=== PATIENT | female | born 1940 | race Two or more races ===

== ENCOUNTER 2024-05-25 07:57 | Inpatient (IN) | payer MEDICARE, OTHER ==
[~2024-05-25] VITALS: Ht 152.4 cm; Wt 41.7 kg
[2024-05-25 07:00] VITALS: BP 138/63; TEMP 97.5; O2SAT 96
[2024-05-25] MEDS ORDERED: ONDANSETRON HCL/PF 4 MG/2 ML VIAL ONE (08:15)
[2024-05-25] MEDS ORDERED: FAMOTIDINE/PF INJ 20 MG/2 ML VIAL IV ONE (08:15)
[2024-05-25] MEDS: ONDANSETRON HCL/PF 4 MG/2 ML VIAL IVP ONE (08:22)
[2024-05-25] MEDS: FAMOTIDINE/PF INJ 20 MG/2 ML VIAL IV ONE (08:24)
[2024-05-25 08:33] LABS: BASOPHILS # (AUTO) 0.1 K/uL (0.0-0.2); BASOPHILS % (AUTO) 0.6 % (0.0-2.0); EOSINOPHILS # (AUTO) 0.2 K/uL (0.0-0.7); EOSINOPHILS % (AUTO) 1.3 % (0.0-6.0); HEMATOCRIT 41 % (33-45); HEMOGLOBIN 13.3 g/dL (11.5-14.8); LYMPHOCYTES % (AUTO) 26.6 % (20.0-44.0); MEAN CORPUSCULAR HEMOGLOBIN 28 PG (26.0-33.0); MEAN CORPUSCULAR HGB CONC 32 g/dl (31.0-36.0); MEAN CORPUSCULAR VOLUME 87 fL (82-100); MONOCYTES # (AUTO) 0.6 K/uL (0.1-1.30); MONOCYTES % (AUTO) 4.3 % (2.0-12.0); NEUTROPHILS # (AUTO) 10.1 K/uL (1.8-8.9); NEUTROPHILS % (AUTO) 67.2 % (43.0-81.0); PLATELET COUNT (AUTO) 407 K/uL (150-450); RED BLOOD CELL COUNT(AUTO) 4.73 MIL/uL (4.0-5.2); WHITE BLOOD COUNT (AUTO) 15.1 K/uL (4.3-11.0)
[2024-05-25] MEDS: IV NS 0.9% 500 ML BAG IV ONE (08:35)
[2024-05-25] MEDS: PANTOPRAZOLE 80 MG in IV NS 0.9% 100 ML IV ONE (08:47)
[2024-05-25 08:55] LABS: ALANINE AMINOTRANSFERASE 12 U/L (12-78); ALBUMIN 2.8 g/dL (3.4-5.0); ALKALINE PHOSPHATASE 87 U/L (46-116); ASPARTATE AMINOTRANSFERASE 10 U/L (15-37); BILIRUBIN,DIRECT 0.1 mg/dL (0.0-0.2); BILIRUBIN,TOTAL 0.3 mg/dL (0.2-1.0); CALCIUM, SERUM 8.8 mg/dL (8.5-10.1); CARBON DIOXIDE 23 mmol/L (21-32); CHLORIDE 107 mmol/L (98-107); CREATININE 0.7 mg/dL (0.6-1.3); GLUCOSE 111 mg/dL (74-106); INR 1.02 (0.91-1.10); LIPASE 39 U/L (16-77); PARTIAL THROMBOPLASTIN TIME 28.3 SEC (24.3-34.3); POTASSIUM 4.3 mmol/L (3.5-5.1); PROTHROMBIN TIME 10.8 SECS (9.2-11.1); SODIUM SERUM 143 mmol/L (136-145); TOTAL PROTEIN, SERUM 7.4 g/dL (6.4-8.2); UREA NITROGEN, BLOOD 14 mg/dL (7-18)
[2024-05-25 08:57] LABS: APPEARANCE,URINE CLOUDY (CLEAR); BILIRUBIN,URINE NEGATIVE (NEGATIVE); BLOOD, URINE TRACE-INTA Ery/uL (NEGATIVE); COLOR,URINE YELLOW (YELLOW); KETONES,URINE NEGATIVE (NEGATIVE); LEUKOCYTE ESTERASE ,URINE NEGATIVE (NEGATIVE); NITRITE, URINE POSITIVE (NEGATIVE); PROTEIN,URINE TRACE mg/dl (NEGATIVE); UGLUCOSE NEGATIVE (NEGATIVE); UROBILINOGEN,URINE 0.2 EU/dL (0.2)
[2024-05-25 08:59] LABS: ADD URINE CULTURE YES; BACTERIA,URINE Few /HPF (None Seen); SQUAMOUS EPITHELIAL CELL,UR Rare /HPF (None Seen)
[2024-05-25] MEDS ORDERED: CRAN425C6 PO (10:00)
[2024-05-25] MEDS ORDERED: CYAN100T9 PO (10:00)
[2024-05-25] MEDS ORDERED: ACET325T53 PO ×2 (10:00)
[2024-05-25] MEDS ORDERED: SIMV-49 PO (10:00)
[2024-05-25] MEDS ORDERED: MAGN400O6 PO (10:00)
[2024-05-25] MEDS ORDERED: EYEL1KIT TP (10:00)
[2024-05-25] MEDS ORDERED: MULT-213 PO (10:00)
[2024-05-25] MEDS ORDERED: DOCU100C36 PO (10:00)
[2024-05-25] MEDS: PANTOPRAZOLE 80 MG in IV NS 0.9% 500 ML IV ONE (10:00)
[2024-05-25 10:30] VITALS: BP 138/110; TEMP 98.2; O2SAT 98
[2024-05-25] MEDS ORDERED: CEFTRIAXONE 1GM BAG (ER ONLY) 1 GM/50 ML PIGGYBACK IV ONE (10:30)
[2024-05-25 16:00] VITALS: BP 107/63; TEMP 98.2; O2SAT 98
[2024-05-25] MEDS ORDERED: ACETAMINOPHEN 325 MG TABLET PO SCH (18:30)
[2024-05-25] MEDS ORDERED: ACETAMINOPHEN 325 MG TABLET PO PRN (18:30)
[2024-05-25] MEDS ORDERED: MAGNESIUM HYDROXIDE 30 ML UDC PO PRN (18:30)
[2024-05-25 20:00] VITALS: BP 128/56; TEMP 98.2; O2SAT 94
[2024-05-25] MEDS: SIMVASTATIN 20 MG TABLET PO SCH (21:43)
[2024-05-26 06:47] LABS: BASOPHILS # (AUTO) 0.1 K/uL (0.0-0.2); BASOPHILS % (AUTO) 0.6 % (0.0-2.0); EOSINOPHILS # (AUTO) 0.2 K/uL (0.0-0.7); EOSINOPHILS % (AUTO) 1.7 % (0.0-6.0); HEMATOCRIT 37 % (33-45); HEMOGLOBIN 12.1 g/dL (11.5-14.8); LYMPHOCYTES # (AUTO) 1.5 K/uL (0.8-4.8); LYMPHOCYTES % (AUTO) 16.5 % (20.0-44.0); MEAN CORPUSCULAR HEMOGLOBIN 29 PG (26.0-33.0); MEAN CORPUSCULAR HGB CONC 33 g/dl (31.0-36.0); MEAN CORPUSCULAR VOLUME 87 fL (82-100); MONOCYTES # (AUTO) 0.7 K/uL (0.1-1.30); NEUTROPHILS # (AUTO) 6.6 K/uL (1.8-8.9); NEUTROPHILS % (AUTO) 73.2 % (43.0-81.0); PLATELET COUNT (AUTO) 281 K/uL (150-450); RED BLOOD CELL COUNT(AUTO) 4.25 MIL/uL (4.0-5.2); RED CELL DISTRIBUTION WIDTH 15.7 % (11.5-15.0); WHITE BLOOD COUNT (AUTO) 9.1 K/uL (4.3-11.0)
[2024-05-26 07:00] VITALS: BP 138/67; TEMP 97.5; O2SAT 95
[2024-05-26 07:09] LABS: CALCIUM, SERUM 8.2 mg/dL (8.5-10.1); CARBON DIOXIDE 22 mmol/L (21-32); CHLORIDE 109 mmol/L (98-107); CREATININE 0.4 mg/dL (0.6-1.3); GLUCOSE 87 mg/dL (74-106); MAGNESIUM 2.2 mg/dL (1.8-2.4); POTASSIUM 3.9 mmol/L (3.5-5.1); SODIUM SERUM 142 mmol/L (136-145); UREA NITROGEN, BLOOD 8 mg/dL (7-18)
[2024-05-26] MEDS: MULTIVIT W/MINERALS 1 TAB TABLET PO SCH (08:35)
[2024-05-26] MEDS: DOCUSATE SODIUM 100 MG CAPSULE PO SCH (08:36)
[2024-05-26] MEDS: CYANOCOBALAMIN 100 MCG TABLET PO SCH (08:36)
[2024-05-26] MEDS ORDERED: Medication Not On Formulary EA (Cranberry Extract (Cranberry) 425 MG) PO SCH (09:00)
[2024-05-26] MEDS ORDERED: [UNRECOGNIZED DRUG - OTHER] TP SCH (09:00)
[2024-05-26] MEDS: CEFTRIAXONE 1 G in IV D5W 50 ML IV SCH (09:38)
[2024-05-26] MEDS: PANTOPRAZOLE 40 MG VIAL IV SCH (14:02)
[2024-05-26 16:00] VITALS: BP 110/67; TEMP 98.8; O2SAT 95
[2024-05-26 20:13] VITALS: BP 123/85; TEMP 98.4; O2SAT 95
[2024-05-26 23:18] VITALS: BP 123/85; TEMP 98.4; O2SAT 95
[2024-05-27 07:00] VITALS: BP 114/77; TEMP 98.2; O2SAT 97
[2024-05-27 16:00] VITALS: BP 109/61; TEMP 98.1; O2SAT 96
[2024-05-27 20:00] VITALS: BP_SYST 95; BP_DIAS 64; BP_DIAS 84; TEMP 97.9; O2SAT 95
[2024-05-28 06:36] LABS: BASOPHILS % (AUTO) 0.5 % (0.0-2.0); EOSINOPHILS # (AUTO) 0.2 K/uL (0.0-0.7); HEMATOCRIT 40 % (33-45); HEMOGLOBIN 12.9 g/dL (11.5-14.8); LYMPHOCYTES % (AUTO) 22.2 % (20.0-44.0); MEAN CORPUSCULAR HEMOGLOBIN 28 PG (26.0-33.0); MEAN CORPUSCULAR HGB CONC 32 g/dl (31.0-36.0); MEAN CORPUSCULAR VOLUME 87 fL (82-100); MONOCYTES # (AUTO) 0.7 K/uL (0.1-1.30); MONOCYTES % (AUTO) 7.4 % (2.0-12.0); NEUTROPHILS % (AUTO) 67.9 % (43.0-81.0); PLATELET COUNT (AUTO) 295 K/uL (150-450); RED BLOOD CELL COUNT(AUTO) 4.57 MIL/uL (4.0-5.2); RED CELL DISTRIBUTION WIDTH 15.7 % (11.5-15.0); WHITE BLOOD COUNT (AUTO) 8.9 K/uL (4.3-11.0)
[2024-05-28 06:58] LABS: CALCIUM, SERUM 8.4 mg/dL (8.5-10.1); CARBON DIOXIDE 23 mmol/L (21-32); CHLORIDE 109 mmol/L (98-107); CREATININE 0.6 mg/dL (0.6-1.3); GLUCOSE 91 mg/dL (74-106); MAGNESIUM 2.4 mg/dL (1.8-2.4); PHOSPHORUS 3.2 mg/dL (2.5-4.9); POTASSIUM 3.8 mmol/L (3.5-5.1); SODIUM SERUM 142 mmol/L (136-145); UREA NITROGEN, BLOOD 6 mg/dL (7-18)
[2024-05-28 08:00] VITALS: BP 105/84; TEMP 99.3; O2SAT 90
[2024-05-28] MEDS ORDERED: ENSURE ENLIVE CHOC 237 ML CAN PO SCH (17:00)
== END 2024-05-28 14:30 | DRG 377 ==
LOC: ER 08:10 → MED 09:46
PROVIDERS: ADMIT Internal Medicine Nephrology; ATTEND Internal Medicine Nephrology
DX: K92.2 Gastrointestinal hemorrhage, unspecified (principal); G92.8 Other toxic encephalopathy; N39.0 Urinary tract infection, site not specified; F03.90 Unspecified dementia, unspecified severity, without behavioral disturbance, psychotic disturbance, mood disturbance, and anxiety; Z86.73 Personal history of transient ischemic attack (TIA), and cerebral infarction without residual deficits; M81.0 Age-related osteoporosis without current pathological fracture; B96.20 Unspecified Escherichia coli [E. coli] as the cause of diseases classified elsewhere
CPT/HCPCS: 36415; 71045-TC; 80048-TC; 80076-TC; 81001; 82962-TC; 83690-TC; 83735-TC; 84100-TC; 84484-TC; 85025-TC; 85730-TC; 86850-TC; 87086-TC; A4223; G0378; J0696; J2405; J2470; J3490; J7030; J7040; J7060

== ENCOUNTER 2024-11-21 11:34 | Inpatient (IN) | payer MEDICARE, BC, OTHER ==
[~2024-11-21] VITALS: Ht 152.4 cm; Wt 39.9 kg
[~2024-11-21 11:34] MED LIST: ACET325T53 PO; CRAN425C6 PO; CYAN100T9 PO; DOCU100C36 PO; EYEL1KIT TP; MAGN400O6 PO; MULT-213 PO; SIMV-49 PO
[2024-11-21] MEDS ORDERED: CEFTRIAXONE 1GM BAG (ER ONLY) 0 ML IV ONE (12:42)
[2024-11-21] MEDS: IV NS 0.9% 1,000 ML BAG IV ONE (12:47)
[2024-11-21] MEDS: CEFTRIAXONE 1GM BAG (ER ONLY) 50 ML IV ONE (12:48)
[2024-11-21] MEDS: AZITHROMYCIN 500 MG in IV D5W 250 ML IV ONE (12:55)
[2024-11-21 13:08] LABS: BASOPHILS % (AUTO) 0.1 % (0.0-2.0); CARBON DIOXIDE 25 mmol/L (21-32); GLUCOSE 133 mg/dL (74-106); HEMATOCRIT 43 % (33-45); LYMPHOCYTES # (AUTO) 0.8 K/uL (0.8-4.8); LYMPHOCYTES % (AUTO) 5.2 % (20.0-44.0); MEAN CORPUSCULAR HEMOGLOBIN 28 PG (26.0-33.0); MEAN CORPUSCULAR HGB CONC 32 g/dl (31.0-36.0); MEAN CORPUSCULAR VOLUME 85 fL (82-100); MONOCYTES # (AUTO) 0.7 K/uL (0.1-1.30); MONOCYTES % (AUTO) 4.4 % (2.0-12.0); NEUTROPHILS # (AUTO) 14.2 K/uL (1.8-8.9); NEUTROPHILS % (AUTO) 90.3 % (43.0-81.0); PLATELET COUNT (AUTO) 575 K/uL (150-450); POTASSIUM 3.4 mmol/L (3.5-5.1); RED BLOOD CELL COUNT(AUTO) 5.08 MIL/uL (4.0-5.2); RED CELL DISTRIBUTION WIDTH 16.7 % (11.5-15.0); UREA NITROGEN, BLOOD 45 mg/dL (7-18); WHITE BLOOD COUNT (AUTO) 15.8 K/uL (4.3-11.0)
[2024-11-21 13:14] LABS: CHLORIDE 127 mmol/L (98-107); LACTIC ACID 1.7 mmol/L (0.4-2.0); SODIUM SERUM 164 mmol/L (136-145)
[2024-11-21 13:21] LABS: ALANINE AMINOTRANSFERASE 285 U/L (12-78); ALBUMIN 2.6 g/dL (3.4-5.0); ALKALINE PHOSPHATASE 192 U/L (46-116); ASPARTATE AMINOTRANSFERASE 404 U/L (15-37); BILIRUBIN,DIRECT 0.3 mg/dL (0.0-0.2); BILIRUBIN,TOTAL 0.6 mg/dL (0.2-1.0); TOTAL PROTEIN, SERUM 8.6 g/dL (6.4-8.2)
[2024-11-21] MEDS ORDERED: ACET-868 PO (13:30)
[2024-11-21] MEDS ORDERED: CRAN3875 PO (13:30)
[2024-11-21] MEDS ORDERED: PANT40TA2 PO (13:30)
[2024-11-21 14:01] LABS: ABG BASE EXCESS -4.9 mmol/L (-2.0-3.0); ABG PCO2 33.7 mmHg (32.0-45.0); ABG PH 7.379 (7.350-7.450); ABG PO2 244.8 mmHg (83.0-108.0); ABG TOTAL HEMOGLOBIN 12.3 G/dL (12.0-16.0); COHb 0.2 % (0.5-1.5); MetHb 0.4 % (0.0-1.5); O2Hb 98.4 % (94.0-97.0)
[2024-11-21] MEDS: IV 1/2NS 1000 ML 1,000 ML IV SCH (14:59)
[2024-11-21] MEDS ORDERED: ONDANSETRON HCL/PF 4 MG/2 ML VIAL IVP PRN (15:00)
[2024-11-21] MEDS ORDERED: MAG HYDROX/AL HYDROX/SIMETH 30 ML UDC PO PRN (15:00)
[2024-11-21] MEDS ORDERED: ACETAMINOPHEN 325 MG TABLET PO PRN (15:00)
[2024-11-21] MEDS ORDERED: MAGNESIUM HYDROXIDE 30 ML UDC PO PRN (15:00)
[2024-11-21 16:00] VITALS: BP 107/65; TEMP 97.1; O2SAT 98
[2024-11-21] MEDS: ZOSYN IVPB 2.25 G in IV D5W 50ml IV SCH (16:18)
[2024-11-21 20:00] VITALS: BP 94/60; TEMP 96.8; O2SAT 97
[2024-11-22] VITALS: BP 100/52; TEMP 98.1; O2SAT 98
[2024-11-22 04:00] VITALS: BP 97/52; TEMP 97.3; O2SAT 97
[2024-11-22 08:00] VITALS: BP 98/57; TEMP 97.8; O2SAT 97
[2024-11-22 08:47] LABS: BASOPHILS % (AUTO) 0.1 % (0.0-2.0); EOSINOPHILS % (AUTO) 0.1 % (0.0-6.0); HEMATOCRIT 38 % (33-45); HEMOGLOBIN 11.3 g/dL (11.5-14.8); LYMPHOCYTES # (AUTO) 0.9 K/uL (0.8-4.8); LYMPHOCYTES % (AUTO) 6.3 % (20.0-44.0); MEAN CORPUSCULAR HEMOGLOBIN 27 PG (26.0-33.0); MEAN CORPUSCULAR HGB CONC 30 g/dl (31.0-36.0); MEAN CORPUSCULAR VOLUME 91 fL (82-100); MONOCYTES # (AUTO) 0.6 K/uL (0.1-1.30); MONOCYTES % (AUTO) 3.8 % (2.0-12.0); NEUTROPHILS % (AUTO) 89.7 % (43.0-81.0); PLATELET COUNT (AUTO) 392 K/uL (150-450); RED BLOOD CELL COUNT(AUTO) 4.16 MIL/uL (4.0-5.2); RED CELL DISTRIBUTION WIDTH 17.7 % (11.5-15.0); WHITE BLOOD COUNT (AUTO) 14.5 K/uL (4.3-11.0)
[2024-11-22 09:13] LABS: CALCIUM, SERUM 8.7 mg/dL (8.5-10.1); CREATININE 0.7 mg/dL (0.6-1.3); MAGNESIUM 2.7 mg/dL (1.8-2.4); PHOSPHORUS 2.9 mg/dL (2.5-4.9); POTASSIUM 3.2 mmol/L (3.5-5.1)
[2024-11-22] MEDS: ENOXAPARIN SODIUM 30 MG/0.3 ML DISP.SYRIN SQ SCH (10:11)
[2024-11-22 12:00] VITALS: BP 95/84; TEMP 97.9; O2SAT 99
[2024-11-22] MEDS ORDERED: IOHEXOL-350 100 ML VIAL IV ONE (13:12)
[2024-11-22] MEDS ORDERED: CT SWABBABLE VALVE TRANS SET 1 EA INFUS.SET MC ONE (13:12)
[2024-11-22] MEDS ORDERED: IV NS 0.9% 250 ML IV ONE (13:13)
[2024-11-22 16:00] VITALS: BP 100/45; TEMP 97.5; O2SAT 100
[2024-11-22 20:00] VITALS: BP 99/54; TEMP 97.6; O2SAT 100
[2024-11-23] VITALS (7 sets, daily range): BP systolic 90–131; BP diastolic 60–104; TEMP 97.9–98.3; O2SAT 100
[2024-11-23 08:25] LABS: BASOPHILS % (AUTO) 0.1 % (0.0-2.0); EOSINOPHILS # (AUTO) 0.1 K/uL (0.0-0.7); EOSINOPHILS % (AUTO) 0.8 % (0.0-6.0); HEMATOCRIT 40 % (33-45); HEMOGLOBIN 12.3 g/dL (11.5-14.8); LYMPHOCYTES % (AUTO) 7.8 % (20.0-44.0); MEAN CORPUSCULAR HEMOGLOBIN 28 PG (26.0-33.0); MEAN CORPUSCULAR HGB CONC 31 g/dl (31.0-36.0); MEAN CORPUSCULAR VOLUME 90 fL (82-100); MONOCYTES # (AUTO) 0.4 K/uL (0.1-1.30); MONOCYTES % (AUTO) 2.8 % (2.0-12.0); NEUTROPHILS # (AUTO) 11.8 K/uL (1.8-8.9); NEUTROPHILS % (AUTO) 88.5 % (43.0-81.0); PLATELET COUNT (AUTO) 324 K/uL (150-450); RED BLOOD CELL COUNT(AUTO) 4.45 MIL/uL (4.0-5.2); RED CELL DISTRIBUTION WIDTH 17.2 % (11.5-15.0); WHITE BLOOD COUNT (AUTO) 13.4 K/uL (4.3-11.0)
[2024-11-23 09:11] LABS: URINE TOTAL PROTEIN 110.9 mg/dL (0-11.9)
[2024-11-23 09:22] LABS: APPEARANCE,URINE SLIGHTLY CLOUDY (CLEAR); BILIRUBIN,URINE NEGATIVE (NEGATIVE); BLOOD, URINE 3+ Ery/uL (NEGATIVE); COLOR,URINE YELLOW (YELLOW); KETONES,URINE NEGATIVE (NEGATIVE); LEUKOCYTE ESTERASE ,URINE 2+ (NEGATIVE); NITRITE, URINE NEGATIVE (NEGATIVE); PROTEIN,URINE 1+ mg/dl (NEGATIVE); UGLUCOSE NEGATIVE (NEGATIVE); UROBILINOGEN,URINE 0.2 EU/dL (0.2)
[2024-11-23 09:23] LABS: ALBUMIN 1.8 g/dL (3.4-5.0); BILIRUBIN,TOTAL 0.6 mg/dL (0.2-1.0); CREATININE 0.7 mg/dL (0.6-1.3); MAGNESIUM 2.5 mg/dL (1.8-2.4); PHOSPHORUS 3.3 mg/dL (2.5-4.9); POTASSIUM 3.2 mmol/L (3.5-5.1); TOTAL PROTEIN, SERUM 6.3 g/dL (6.4-8.2)
[2024-11-23 10:27] LABS: ADD URINE CULTURE YES; BACTERIA,URINE Few /HPF (None Seen); SQUAMOUS EPITHELIAL CELL,UR Few /HPF (None Seen)
[2024-11-23 10:28] LABS: URINE AMORPHOUS URATE Many /HPF (None Seen); YEAST,URINE Few /HPF (None Seen)
[2024-11-23 10:29] LABS: EOSINOPHIL,URINE None Seen
[2024-11-24] VITALS: BP 138/78; TEMP 97.7; O2SAT 100
[2024-11-24 04:00] VITALS: BP 144/84; TEMP 97.5; O2SAT 100
[2024-11-24 08:00] VITALS: BP 123/95; TEMP 97.5; O2SAT 99
[2024-11-24] MEDS: IV 1/2NS 1000 ML 1,000 ML IV PRN (09:31)
[2024-11-24 12:00] VITALS: BP 99/70; TEMP 98.2; O2SAT 99
[2024-11-24 16:00] VITALS: BP 113/67; TEMP 97.9; O2SAT 99
[2024-11-24 16:04] LABS: BASOPHILS % (AUTO) 0.1 % (0.0-2.0); EOSINOPHILS # (AUTO) 0.1 K/uL (0.0-0.7); EOSINOPHILS % (AUTO) 0.4 % (0.0-6.0); HEMATOCRIT 36 % (33-45); HEMOGLOBIN 11.8 g/dL (11.5-14.8); LYMPHOCYTES # (AUTO) 0.9 K/uL (0.8-4.8); LYMPHOCYTES % (AUTO) 6.4 % (20.0-44.0); MEAN CORPUSCULAR HEMOGLOBIN 28 PG (26.0-33.0); MEAN CORPUSCULAR HGB CONC 33 g/dl (31.0-36.0); MEAN CORPUSCULAR VOLUME 83 fL (82-100); MONOCYTES # (AUTO) 0.5 K/uL (0.1-1.30); MONOCYTES % (AUTO) 3.1 % (2.0-12.0); NEUTROPHILS # (AUTO) 13.4 K/uL (1.8-8.9); PLATELET COUNT (AUTO) 434 K/uL (150-450); RED CELL DISTRIBUTION WIDTH 15.4 % (11.5-15.0); WHITE BLOOD COUNT (AUTO) 14.9 K/uL (4.3-11.0)
[2024-11-24 16:14] LABS: CALCIUM, SERUM 8.9 mg/dL (8.5-10.1); CREATININE 0.4 mg/dL (0.6-1.3); POTASSIUM 2.9 mmol/L (3.5-5.1)
[2024-11-24] MEDS: IV D5/0.45 NACL 1,000 ML IV PRN (19:48)
[2024-11-24 20:00] VITALS: BP 123/80; TEMP 97.9; O2SAT 99
[2024-11-24] MEDS: POTASSIUM CL. PREMIX PERIPHER. 50 ML IV SCH (20:14)
[2024-11-25] VITALS: BP 131/66; TEMP 98.1; O2SAT 100
[2024-11-25 04:00] VITALS: BP 132/83; TEMP 97.7; O2SAT 98
[2024-11-25 08:00] VITALS: BP 131/85; TEMP 97.5; O2SAT 96
[2024-11-25 12:00] VITALS: BP 114/87; TEMP 97.5; O2SAT 95
[2024-11-25] MEDS ORDERED: POTASSIUM CL. PREMIX PERIPHER. 50 ML IV SCH (13:30)
[2024-11-25 16:00] VITALS: BP 128/84; TEMP 98.4; O2SAT 94
[2024-11-25 16:04] LABS: BASOPHILS % (AUTO) 0.2 % (0.0-2.0); EOSINOPHILS # (AUTO) 0.1 K/uL (0.0-0.7); EOSINOPHILS % (AUTO) 0.6 % (0.0-6.0); HEMATOCRIT 39 % (33-45); LYMPHOCYTES # (AUTO) 0.9 K/uL (0.8-4.8); LYMPHOCYTES % (AUTO) 8.4 % (20.0-44.0); MEAN CORPUSCULAR HEMOGLOBIN 28 PG (26.0-33.0); MEAN CORPUSCULAR HGB CONC 34 g/dl (31.0-36.0); MEAN CORPUSCULAR VOLUME 83 fL (82-100); MONOCYTES # (AUTO) 0.5 K/uL (0.1-1.30); MONOCYTES % (AUTO) 4.4 % (2.0-12.0); NEUTROPHILS # (AUTO) 8.9 K/uL (1.8-8.9); NEUTROPHILS % (AUTO) 86.4 % (43.0-81.0); PLATELET COUNT (AUTO) 435 K/uL (150-450); RED BLOOD CELL COUNT(AUTO) 4.65 MIL/uL (4.0-5.2); RED CELL DISTRIBUTION WIDTH 15.5 % (11.5-15.0); WHITE BLOOD COUNT (AUTO) 10.3 K/uL (4.3-11.0)
[2024-11-25 16:11] LABS: CALCIUM, SERUM 8.7 mg/dL (8.5-10.1); CREATININE 0.4 mg/dL (0.6-1.3); POTASSIUM 3.5 mmol/L (3.5-5.1)
[2024-11-25 16:27] LABS: ABG BASE EXCESS 0.9 mmol/L (-2.0-3.0); ABG OXYGEN SATURATION 98.5 % (94.0-98.0); ABG PCO2 26.1 mmHg (32.0-45.0); ABG PH 7.546 (7.350-7.450); ABG PO2 121.7 mmHg (83.0-108.0); ABG TOTAL HEMOGLOBIN 12.7 G/dL (12.0-16.0); COHb 0.3 % (0.5-1.5); MetHb 0.2 % (0.0-1.5); SITE, ABG LEFT RADIAL
[2024-11-25 20:00] VITALS: BP 119/76; TEMP 98.1; O2SAT 96
[2024-11-26] VITALS: BP 123/71; TEMP 98; O2SAT 99
[2024-11-26 04:00] VITALS: BP 126/74; TEMP 98.3; O2SAT 99
[2024-11-26 08:00] VITALS: BP 120/53; TEMP 98; O2SAT 98
[2024-11-26 08:49] LABS: BASOPHILS % (AUTO) 0.1 % (0.0-2.0); EOSINOPHILS # (AUTO) 0.1 K/uL (0.0-0.7); EOSINOPHILS % (AUTO) 1.1 % (0.0-6.0); HEMATOCRIT 35 % (33-45); HEMOGLOBIN 11.5 g/dL (11.5-14.8); LYMPHOCYTES # (AUTO) 0.8 K/uL (0.8-4.8); LYMPHOCYTES % (AUTO) 9.6 % (20.0-44.0); MEAN CORPUSCULAR HEMOGLOBIN 28 PG (26.0-33.0); MEAN CORPUSCULAR HGB CONC 33 g/dl (31.0-36.0); MEAN CORPUSCULAR VOLUME 83 fL (82-100); MONOCYTES # (AUTO) 0.5 K/uL (0.1-1.30); MONOCYTES % (AUTO) 5.7 % (2.0-12.0); NEUTROPHILS # (AUTO) 7.1 K/uL (1.8-8.9); NEUTROPHILS % (AUTO) 83.5 % (43.0-81.0); PLATELET COUNT (AUTO) 470 K/uL (150-450); RED BLOOD CELL COUNT(AUTO) 4.18 MIL/uL (4.0-5.2); RED CELL DISTRIBUTION WIDTH 15.3 % (11.5-15.0); WHITE BLOOD COUNT (AUTO) 8.5 K/uL (4.3-11.0)
[2024-11-26 09:28] LABS: ALBUMIN 1.8 g/dL (3.4-5.0); BILIRUBIN,TOTAL 0.3 mg/dL (0.2-1.0); CALCIUM, SERUM 8.5 mg/dL (8.5-10.1); CREATININE 0.4 mg/dL (0.6-1.3); MAGNESIUM 1.6 mg/dL (1.8-2.4)
[2024-11-26 10:35] LABS: POTASSIUM 2.6 mmol/L (3.5-5.1)
[2024-11-26] MEDS: POTASSIUM CL. PREMIX PERIPHER. 50 ML IV SCH (11:13)
[2024-11-26 12:00] VITALS: BP 128/67; TEMP 98.1; O2SAT 95
[2024-11-26 16:00] VITALS: BP 111/65; TEMP 98.3; O2SAT 99
[2024-11-26] MEDS: Sodium Phosphate 15 MMOL in IV NS 0.9% 245 ML IV ONE (17:18)
[2024-11-26 20:00] VITALS: BP 100/59; TEMP 98.2; O2SAT 97
[2024-11-27] VITALS: BP 97/61; TEMP 98.8; O2SAT 99
[2024-11-27] MEDS: IV LR 500 ML IV ONE (02:48)
[2024-11-27 04:00] VITALS: BP 116/57; TEMP 97.9; O2SAT 98
[2024-11-27 08:00] VITALS: BP 111/78; TEMP 98.2; O2SAT 95
[2024-11-27 12:00] VITALS: BP 107/64; TEMP 98.4; O2SAT 99
[2024-11-27 16:00] VITALS: BP 116/71; TEMP 98.1; O2SAT 100
[2024-11-27 20:00] VITALS: BP 101/56; TEMP 98.9; O2SAT 99
[2024-11-28] VITALS: BP 112/61; TEMP 98.8; O2SAT 100
[2024-11-28 04:00] VITALS: BP 100/76; TEMP 98.6; O2SAT 99
[2024-11-28 08:00] VITALS: BP 110/95; TEMP 98.1; O2SAT 100
[2024-11-28 08:06] LABS: *SPE A/G RATIO 0.6 (0.7-1.7); *SPE ALBUMIN 2.1 g/dL (2.9-4.4); *SPE ALPHA-1-GLOBULIN 0.4 g/dL (0.0-0.4); *SPE BETA GLOBULIN 1.3 g/dL (0.7-1.3); *SPE GLOBULIN, TOTAL 3.5 g/dL (2.2-3.9); *SPE M-SPIKE Not Observed g/dL (Not Observed); *SPE PROTEIN TOTAL 5.6 g/dL (6.0-8.5); *SPEGAMMA GLOBULIN 0.9 g/dL (0.4-1.8)
[2024-11-28 12:00] VITALS: BP 120/82; TEMP 98.3; O2SAT 98
[2024-11-28 15:34] LABS: BASOPHILS % (AUTO) 0.1 % (0.0-2.0); EOSINOPHILS # (AUTO) 0.1 K/uL (0.0-0.7); EOSINOPHILS % (AUTO) 1.6 % (0.0-6.0); HEMATOCRIT 36 % (33-45); HEMOGLOBIN 11.7 g/dL (11.5-14.8); LYMPHOCYTES # (AUTO) 1.6 K/uL (0.8-4.8); LYMPHOCYTES % (AUTO) 16.8 % (20.0-44.0); MEAN CORPUSCULAR HEMOGLOBIN 28 PG (26.0-33.0); MEAN CORPUSCULAR HGB CONC 33 g/dl (31.0-36.0); MEAN CORPUSCULAR VOLUME 84 fL (82-100); MONOCYTES # (AUTO) 0.7 K/uL (0.1-1.30); MONOCYTES % (AUTO) 7.8 % (2.0-12.0); NEUTROPHILS # (AUTO) 6.8 K/uL (1.8-8.9); NEUTROPHILS % (AUTO) 73.7 % (43.0-81.0); PLATELET COUNT (AUTO) 429 K/uL (150-450); RED BLOOD CELL COUNT(AUTO) 4.26 MIL/uL (4.0-5.2); WHITE BLOOD COUNT (AUTO) 9.3 K/uL (4.3-11.0)
[2024-11-28 16:00] VITALS: BP 114/62; TEMP 97.9; O2SAT 97
[2024-11-28 16:09] LABS: CALCIUM, SERUM 8.3 mg/dL (8.5-10.1); CREATININE 0.5 mg/dL (0.6-1.3); POTASSIUM 3.5 mmol/L (3.5-5.1)
[2024-11-28 20:00] VITALS: BP 111/54; TEMP 98.6; O2SAT 99
[2024-11-29] VITALS: BP 137/72; TEMP 99.1; O2SAT 100
[2024-11-29 04:00] VITALS: BP 123/60; TEMP 97.5; O2SAT 100
[2024-11-29 08:00] VITALS: BP 130/70; TEMP 97.7; O2SAT 100
[2024-11-29] MEDS: ENOXAPARIN SODIUM 40 MG/0.4 ML DISP.SYRIN SQ SCH (09:00)
[2024-11-29 12:00] VITALS: BP 130/65; TEMP 98; O2SAT 97
[2024-11-29 16:00] VITALS: BP 109/70; TEMP 97.9; O2SAT 96
[2024-11-29 20:00] VITALS: BP 121/70; TEMP 98.2; O2SAT 98
[2024-11-30 04:00] VITALS: BP 137/74; TEMP 98.6; O2SAT 97
[2024-11-30 08:00] VITALS: BP 130/67; TEMP 97.8; O2SAT 100
[2024-11-30 12:00] VITALS: BP 113/70; TEMP 98.2; O2SAT 99
[2024-11-30 16:00] VITALS: BP 120/62; TEMP 98.6; O2SAT 95
[2024-11-30 20:00] VITALS: BP 138/82; TEMP 98.8; O2SAT 98
[2024-12-01] VITALS: BP 148/83; TEMP 98.4; O2SAT 100
[2024-12-01 04:00] VITALS: BP 129/67; TEMP 97.5; O2SAT 99
[2024-12-01] MEDS ORDERED: TPN/PPN PER PHARMACY IV PRN (07:30)
[2024-12-01 08:00] VITALS: BP 137/68; TEMP 97.7; O2SAT 100
[2024-12-01 11:32] LABS: CALCIUM, SERUM 8.4 mg/dL (8.5-10.1); CREATININE 0.6 mg/dL (0.6-1.3); MAGNESIUM 1.9 mg/dL (1.8-2.4); PHOSPHORUS 2.4 mg/dL (2.5-4.9); POTASSIUM 3.2 mmol/L (3.5-5.1)
[2024-12-01 12:00] VITALS: BP 111/56; TEMP 97.9; O2SAT 97
[2024-12-01 12:13] LABS: PREALBUMIN 13.7 MG/DL (18.0-35.7)
[2024-12-01] MEDS: POTASSIUM CL. PREMIX PERIPHER. 50 ML IV SCH (13:16)
[2024-12-01] MEDS ORDERED: DEXTROSE 50%-WATER 50 ML DISP.SYRIN IV PRN (13:30)
[2024-12-01] MEDS: [UNRECOGNIZED DRUG - NUTRITION] IV SCH (14:47)
[2024-12-01 16:00] VITALS: BP 122/77; TEMP 98.4; O2SAT 98
[2024-12-01] MEDS: POTASSIUM PHOSPHATE MM 7.5 MMOL in IV NS 0.9% 100 ML IV SCH (16:28)
[2024-12-01] MEDS: IV D5/0.45 NACL 1,000 ML IV PRN (18:24)
[2024-12-01] MEDS: BLOOD SUGAR DIAGNOSTIC 1 EACH STRIP IN SCH (18:43)
[2024-12-01 20:00] VITALS: BP 125/85; TEMP 99.3; O2SAT 96
[2024-12-02 00:01] VITALS: BP 109/63; TEMP 98.1; O2SAT 98
[2024-12-02 04:24] VITALS: BP 115/62; TEMP 97.5; O2SAT 98
[2024-12-02] MEDS: INSULIN REGULAR, HUMAN 100 UNIT/ML 3 ML VIAL SQ PRN (06:02)
[2024-12-02 07:54] LABS: CALCIUM, SERUM 8.6 mg/dL (8.5-10.1); CREATININE 0.4 mg/dL (0.6-1.3); PHOSPHORUS 2.2 mg/dL (2.5-4.9); POTASSIUM 3.4 mmol/L (3.5-5.1)
[2024-12-02 08:00] VITALS: BP 104/50; TEMP 98.1; O2SAT 97
[2024-12-02 08:10] LABS: CHOLESTEROL 149 mg/dL (<200); HDL CHOLESTEROL 39 mg/dL (40-60); LDL 100 mg/dL (0-99); TRIGLYCERIDES 113 mg/dL (30-150)
[2024-12-02] MEDS: POTASSIUM PHOSPHATE MM 7.5 MMOL in IV NS 0.9% 100 ML IV SCH (08:35)
[2024-12-02] MEDS: FAT EMULSION 20% 500 ML in PREMIX 1 EA IV SCH (09:23)
[2024-12-02 12:00] VITALS: BP 97/62; TEMP 98.1; O2SAT 97
[2024-12-02 16:00] VITALS: BP 111/54; TEMP 98.1; O2SAT 97
[2024-12-02] MEDS: [UNRECOGNIZED DRUG - NUTRITION] IV SCH (19:52)
[2024-12-02 20:00] VITALS: BP 126/65; TEMP 98.1; O2SAT 100
[2024-12-02] MEDS: POTASSIUM CL. PREMIX PERIPHER. 50 ML IV SCH (20:07)
[2024-12-03] VITALS: BP 127/55; TEMP 98.2; O2SAT 100
[2024-12-03 04:00] VITALS: BP 125/71; TEMP 97.7; O2SAT 99
[2024-12-03] MEDS: Z GUARD REMEDY 4 OZ OINT TP PRN (05:15)
[2024-12-03 07:30] LABS: BASOPHILS % (AUTO) 0.3 % (0.0-2.0); EOSINOPHILS # (AUTO) 0.1 K/uL (0.0-0.7); EOSINOPHILS % (AUTO) 1.6 % (0.0-6.0); HEMATOCRIT 33 % (33-45); HEMOGLOBIN 11.2 g/dL (11.5-14.8); LYMPHOCYTES # (AUTO) 0.9 K/uL (0.8-4.8); LYMPHOCYTES % (AUTO) 12.9 % (20.0-44.0); MEAN CORPUSCULAR HEMOGLOBIN 29 PG (26.0-33.0); MEAN CORPUSCULAR HGB CONC 34 g/dl (31.0-36.0); MEAN CORPUSCULAR VOLUME 84 fL (82-100); MONOCYTES # (AUTO) 0.6 K/uL (0.1-1.30); MONOCYTES % (AUTO) 8.5 % (2.0-12.0); NEUTROPHILS # (AUTO) 5.1 K/uL (1.8-8.9); NEUTROPHILS % (AUTO) 76.7 % (43.0-81.0); PLATELET COUNT (AUTO) 402 K/uL (150-450); RED CELL DISTRIBUTION WIDTH 15.9 % (11.5-15.0); WHITE BLOOD COUNT (AUTO) 6.7 K/uL (4.3-11.0)
[2024-12-03 07:46] LABS: CALCIUM, SERUM 8.9 mg/dL (8.5-10.1); CREATININE 0.4 mg/dL (0.6-1.3); POTASSIUM 3.2 mmol/L (3.5-5.1)
[2024-12-03 08:00] VITALS: BP 125/57; TEMP 97.7; O2SAT 99
[2024-12-03 09:31] LABS: MAGNESIUM 1.7 mg/dL (1.8-2.4); PHOSPHORUS 2.2 mg/dL (2.5-4.9)
[2024-12-03 12:00] VITALS: BP 103/53; TEMP 97.7; O2SAT 95
[2024-12-03] MEDS: POTASSIUM CL. PREMIX PERIPHER. 50 ML IV SCH (13:43)
[2024-12-03] MEDS: Magnesium 1GM/D5W 100ML PREMIX 100 ML IV SCH (13:44)
[2024-12-03] MEDS: [UNRECOGNIZED DRUG - NUTRITION] IV SCH (15:57)
[2024-12-03 16:00] VITALS: BP 110/63; TEMP 98.1; O2SAT 96
[2024-12-03] MEDS: Sodium Phosphate 15 MMOL in IV NS 0.9% 245 ML IV SCH (17:22)
[2024-12-03] MEDS ORDERED: ANESTHESIA TRAY IN PYXIS 1 EA TRAY MC ONE (19:13)
[2024-12-03 20:00] VITALS: BP 98/50; TEMP 97.8; O2SAT 95
[2024-12-04] VITALS: BP 124/69; TEMP 98.4; O2SAT 98
[2024-12-04 04:00] VITALS: BP 93/46; TEMP 98.6; O2SAT 97
[2024-12-04 07:58] LABS: BASOPHILS % (AUTO) 0.3 % (0.0-2.0); EOSINOPHILS # (AUTO) 0.1 K/uL (0.0-0.7); EOSINOPHILS % (AUTO) 0.8 % (0.0-6.0); HEMATOCRIT 33 % (33-45); LYMPHOCYTES % (AUTO) 12.3 % (20.0-44.0); MEAN CORPUSCULAR HEMOGLOBIN 28 PG (26.0-33.0); MEAN CORPUSCULAR HGB CONC 33 g/dl (31.0-36.0); MEAN CORPUSCULAR VOLUME 85 fL (82-100); MONOCYTES # (AUTO) 0.5 K/uL (0.1-1.30); MONOCYTES % (AUTO) 6.2 % (2.0-12.0); NEUTROPHILS # (AUTO) 6.5 K/uL (1.8-8.9); NEUTROPHILS % (AUTO) 80.4 % (43.0-81.0); PLATELET COUNT (AUTO) 328 K/uL (150-450); RED CELL DISTRIBUTION WIDTH 16.1 % (11.5-15.0); WHITE BLOOD COUNT (AUTO) 8.1 K/uL (4.3-11.0)
[2024-12-04 08:00] VITALS: BP 107/61; TEMP 98.6; O2SAT 100
[2024-12-04 08:38] LABS: CALCIUM, SERUM 8.1 mg/dL (8.5-10.1); CREATININE 0.4 mg/dL (0.6-1.3); PHOSPHORUS 2.1 mg/dL (2.5-4.9); POTASSIUM 3.8 mmol/L (3.5-5.1)
[2024-12-04] MEDS: Sodium Phosphate 15 MMOL in IV NS 0.9% 245 ML IV SCH (09:08)
[2024-12-04] MEDS ORDERED: IOHEXOL-350 100 ML VIAL IV ONE (11:02)
[2024-12-04] MEDS ORDERED: IV NS 0.9% 250 ML IV ONE (11:02)
[2024-12-04 11:53] LABS: THYROID STIMULATING HORMONE 1.12 uIU/mL (0.358-3.74)
[2024-12-04 12:00] VITALS: BP 92/67; TEMP 97.9; O2SAT 98
[2024-12-04] MEDS ORDERED: [UNRECOGNIZED DRUG - NUTRITION] IV SCH (12:31)
[2024-12-04] MEDS: JEVITY 1.2 CAL 1,000 ML BOTTLE GT PRN (13:19)
== END 2024-12-04 17:22 | DRG 177 ==
LOC: ER 12:15 → TELE1 14:16 → MEDSG1 12-04 14:02
PROVIDERS: ADMIT Internal Medicine; ATTEND Internal Medicine
PROC: 0DH63UZ Insertion of Feeding Device into Stomach, Percutaneous Approach (ICD-10-PCS; principal; 2024-12-03)
DX: J69.0 Pneumonitis due to inhalation of food and vomit (principal); G93.41 Metabolic encephalopathy; J96.01 Acute respiratory failure with hypoxia; R53.2 Functional quadriplegia; N17.0 Acute kidney failure with tubular necrosis; E44.0 Moderate protein-calorie malnutrition; D68.59 Other primary thrombophilia; E87.0 Hyperosmolality and hypernatremia; F03.94 Unspecified dementia, unspecified severity, with anxiety; N39.0 Urinary tract infection, site not specified; R64 Cachexia; Z68.1 Body mass index [BMI] 19.9 or less, adult; J15.69 Pneumonia due to other Gram-negative bacteria; K29.70 Gastritis, unspecified, without bleeding; D64.9 Anemia, unspecified; E78.5 Hyperlipidemia, unspecified; E86.0 Dehydration; E86.1 Hypovolemia; E87.6 Hypokalemia; E88.09 Other disorders of plasma-protein metabolism, not elsewhere classified; Z86.73 Personal history of transient ischemic attack (TIA), and cerebral infarction without residual deficits; Z74.01 Bed confinement status; F03.90 Unspecified dementia, unspecified severity, without behavioral disturbance, psychotic disturbance, mood disturbance, and anxiety; Z74.09 Other reduced mobility; F41.9 Anxiety disorder, unspecified; K21.9 Gastro-esophageal reflux disease without esophagitis; R74.01 Elevation of levels of liver transaminase levels; Z20.822 Contact with and (suspected) exposure to COVID-19; R13.10 Dysphagia, unspecified; K22.5 Diverticulum of esophagus, acquired; M24.574 Contracture, right foot; M24.575 Contracture, left foot; I10 Essential (primary) hypertension; M81.0 Age-related osteoporosis without current pathological fracture; B96.89 Other specified bacterial agents as the cause of diseases classified elsewhere; Z53.9 Procedure and treatment not carried out, unspecified reason
CPT/HCPCS: 36415; 36600; 43246; 70450-TC; 71045-TC; 76770-TC; 80048-TC; 80053-TC; 80061-TC; 80076-TC; 81001; 82040-TC; 82550-TC; 82570-TC; 82607-TC; 82803-TC; 82962-TC; 83605-TC; 83735-TC; 83921; 83970; 84100-TC; 84132-TC; 84134-TC; 84155; 84165; 84300-TC; 84425; 84443-TC; 84478-TC; 84484-TC; 85025-TC; 85378-TC; 87040-TC; 87081-TC; 92526; 92611-TC; 93971-TC; 94799-TC; A4216; A4223; A9563; G0378; J0456; J0696; J1650; J1815; J2543; J2704; J3475; J3480; J3490; J7030; J7050; J7060; J7120; Q9967